=== PATIENT | female | born 1990 | race Caucasian/White ===

== ENCOUNTER 2016-05-01 11:25 | Inpatient (IN) | payer MEDICAID, OTHER ==
[~2016-05-01] VITALS: Ht 152.4 cm; Wt 77.7 kg
[2016-05-01 12:17] VITALS: Ht 152.4 cm; Wt 77.7 kg
[2016-05-01 12:19] VITALS: BP 114/71; PULSE 85; RESP 18
[2016-05-01] MEDS ORDERED: PRENAT PO (12:20)
[2016-05-01] MEDS ORDERED: MISOPROSTOL 200 MCG TAB PR PRN (12:30)
[2016-05-01] MEDS ORDERED: IBUPROFEN 600 MG TAB PO PRN (12:30)
[2016-05-01] MEDS ORDERED: LACTATED RINGER'S 1,000 ML IV PRN (12:30)
[2016-05-01] MEDS ORDERED: METHYLERGONOVINE 0.2 MG INJ IM PRN (12:30)
[2016-05-01] MEDS ORDERED: OXYTOCIN 30 UNITS/LR 500 ML IV SCH ×3 (12:30)
[2016-05-01] MEDS ORDERED: CARBOPROST 250 MCG INJ IM PRN (12:30)
[2016-05-01] MEDS ORDERED: LIDOCAINE 1% (MPF) 30 ML INJ INJ PRN (12:30)
[2016-05-01] MEDS ORDERED: OXYTOCIN 30 UNITS/LR 500 ML IV PRN (12:30)
[2016-05-01] MEDS ORDERED: BUTORPHANOL 2 MG INJ IV PRN (12:30)
[2016-05-01] MEDS ORDERED: ACETAMINOPHEN/CODEINE #3 TAB PO PRN (12:30)
--- NOTE | 2016-05-01 13:06 | RADRPT ---
PROCEDURE: US OB. CLINICAL INDICATION: Size and dates TECHNIQUE: Multiple sonographic images of the pelvis were obtained. Transabdominal imaging only w as performed. The images were reviewed on a PACS workstation. COMPARISON: No prior studies are available for comparison. FINDINGS: Single intrauterine gestation. Cephalic presentation. heart rate is 136 bpm. Accurate biparietal diameter and head circumference measurements could not be obtained secondary to positioning. AC = 32.26 cm FL = 7.17 cm Gestational age is 36 weeks 3 days and MICHEAL is 05/26/2016 by ultrasound criteria. Gestational age is 38 weeks 4 days and MICHEAL is 05/11/2016 by LMP. EFW = 2959 g +/- 473 g (18 %). The placenta is fundal. There is no evidence for an abruption or placenta previa. IMPRESSION: 1. Single live intrauterine gestation of approximately 36 weeks 3 days by ultrasound criteria. RPTAT: EE .Moshe Guerrero MD, MD Date Time Electronically viewed and signed by .Moshe Guerrero MD, on 05/01/2016 13:05 .R/
[2016-05-01 13:18] LABS: ADD SCAN DIFF NO
[2016-05-01 13:32] LABS: BASOPHILS % 0.4 % (0.0-2.0); EOSINOPHILS # 0.1 10^3/ul (0.0-0.5); EOSINOPHILS % 0.9 % (0.0-7.0); HEMATOCRIT 27.4 % (37.0-47.0); HEMOGLOBIN 11.2 g/dl (12.0-16.0); LYMPHOCYTES # 2.4 10^3/ul (0.8-2.9); LYMPHOCYTES % 23.5 % (15.0-51.0); MEAN CORPUSCULAR HEMOGLOBIN 39.9 pg (29.0-33.0); MEAN CORPUSCULAR VOLUME 97.5 fl (82.0-101.0); MEAN PLATELET VOLUME 11.4 fl (7.4-10.4); MONOCYTE # 0.9 10^3/ul (0.3-0.9); MONOCYTES % 8.6 % (0.0-11.0); NEUTROPHIL # 6.7 10^3/ul (1.6-7.5); NEUTROPHILS % 66.2 % (39.0-77.0); PLATELET COUNT 231 10^3/UL (140-415); RED BLOOD COUNT 2.81 10^6/ul (4.20-5.40); RED CELL DISTRIBUTION WIDTH 16.6 % (11.5-14.5); WHITE BLOOD COUNT 10.1 10^3/ul (4.8-10.8)
[2016-05-01 13:35] LABS: MEAN CORPUSCULAR HGB CONC 40.9 g/dl (32.0-37.0)
[2016-05-01 13:41] LABS: INR 0.88; PROTIME 11.9 Sec (12.2-14.2); PT RATIO 0.9
[2016-05-01 13:42] LABS: PARTIAL THROMBOPLASTIN TIME 28.1 Sec (25.0-35.0)
[2016-05-01] MEDS: LACTATED RINGER'S 1,000 ML IV SCH ×2 (13:44→19:28)
[2016-05-01] MEDS: BUTORPHANOL 2 MG INJ IV PRN ×2 (18:23→22:24)
[2016-05-02] MEDS ORDERED: LACTATED RINGER'S 1,000 ML IV ONE (01:23)
[2016-05-02] MEDS ORDERED: CITRIC ACID/NA CITRATE 30 ML CUP ONE (01:27)
[2016-05-02] MEDS ORDERED: ONDANSETRON 4 MG INJ ONE (01:28)
[2016-05-02] MEDS ORDERED: NALOXONE (0.4 MG/ML) INJ IV PRN (01:30)
[2016-05-02] MEDS ORDERED: ONDANSETRON 4 MG INJ IV PRN (01:30)
[2016-05-02] MEDS ORDERED: KETOROLAC 30 MG INJ IV PRN (01:30)
[2016-05-02] MEDS ORDERED: ONDANSETRON 4 MG INJ IV ONE (01:30)
[2016-05-02] MEDS ORDERED: PROCHLORPERAZINE 10 MG INJ IV PRN (01:30)
[2016-05-02] MEDS ORDERED: morphine 2 MG INJ IV PRN ×2 (01:30)
[2016-05-02] MEDS ORDERED: FENTAnyl 2MCG/ML-ROPIV 0.2% 100 ML BAG EPI SCH (01:30)
[2016-05-02] MEDS ORDERED: CITRIC ACID/NA CITRATE 30 ML CUP PO ONE (01:30)
[2016-05-02] MEDS ORDERED: DIPHENHYDRAMINE 50 MG INJ IV PRN (01:30)
[2016-05-02] MEDS ORDERED: FENTAnyl 2MCG/ML-ROPIV 0.2% 100 ML ONE (01:31)
[2016-05-02] MEDS: LACTATED RINGER'S 1,000 ML IV SCH (02:01)
--- NOTE | 2016-05-02 09:10 | HP ---
Date/Time of Note Date/Time of Note DATE: 05/02/16 TIME: 09:08 OB - History Hx of Present Free Text/Dictation @38+wks GA ,few admissions to [facility] for early labor and CTXs Progressed from FT to 4 cm Admitted for Delivery : 1 Para: 0 Care: Good Care Ultrasounds: Normal mid trimester US Obstetrical Complications: None Medical Complications: None Past Family/Social History * Past Medical, Surgical, Family and Obstetric Histories reviewed from chart. OB Admission Exam Vital Signs Vital Signs Vital Signs Date Time Temp Pulse Resp B/P Pulse Ox O2 Delivery O2 Flow Rate FiO2 05/01/16 12:19 98.6 85 18 114/71 Room Air Physical Exam Abdomen: WNL Extremities: Normal Reflexes: Normal Cervical Dilatation: 4cm Effacement: 75% Station: -1 Membranes: Intact Heart Rate: 140's Accelerations: Accelerations Present Decelerations: No Decelerations Varibility: Moderate Contractions on Admission: 6-10 Minutes Apart Last 72 hours Lab Results CBC & BMP 05/01/16 13:00 OB Assessment/Plan Reason for admission: observation Plan: Expectant Management Induction Method: per Pitocin Protocol LILIYA MEYERS M.D. May 02, 2016 09:10
--- NOTE | 2016-05-02 09:12 | LDN ---
Date/Time of Note Date/Time of Note DATE: 05/02/16 TIME: 09:10 Delivery Summary Midline Episiotomy Due to distress Placenta Delivered: Spontaneously Meconium: Light Perineum intact?: No Anesthesia type: Epidural Estimated blood loss: 200 Sponge & Needle done & correct: Yes All needle counts correct: Yes Any foreign bodies felt in the: No Problems: Delivery Information Apgars 1 Minute: 9 5 Minute: 9 Suctioning Nose & mouth suctioned at quan: Yes Delee suction performed: Yes Umbilical Cord Umbilical cord with: 3 Vessels Cord presentations: no nuchal cord Cord Blood was obtained: Yes LILIYA MEYERS M.D. May 02, 2016 09:11
[2016-05-02 10:50] VITALS: BP 117/73; PULSE 89; RESP 18
[2016-05-02] MEDS ORDERED: WITCH HAZEL/GLYCERIN PAD PR PRN (11:00)
[2016-05-02] MEDS ORDERED: ZOLPIDEM 5 MG TAB PO PRN (11:00)
[2016-05-02] MEDS ORDERED: SENNA/DOCUSATE NA (8.6MG/50MG) TAB PO PRN (11:00)
[2016-05-02] MEDS ORDERED: BENZOCAINE 20% 56 ML SPRAY TOP PRN (11:00)
[2016-05-02] MEDS ORDERED: LANOLIN 7 GM TUBE TOP PRN (11:00)
[2016-05-02] MEDS ORDERED: MISOPROSTOL 200 MCG TAB PR PRN (11:00)
[2016-05-02] MEDS ORDERED: OXYCODONE/ASPIRIN (4.88/325) TAB PO PRN (11:00)
[2016-05-02] MEDS ORDERED: METHYLERGONOVINE 0.2 MG INJ IM PRN (11:00)
[2016-05-02] MEDS ORDERED: CARBOPROST 250 MCG INJ IM PRN (11:00)
[2016-05-02] MEDS ORDERED: OXYTOCIN 30 UNITS/LR 500 ML IV PRN (11:00)
[2016-05-02 12:00] VITALS: BP 115/73; PULSE 80; RESP 18
[2016-05-02] MEDS: IBUPROFEN 600 MG TAB PO SCH ×3 (12:24→23:56)
[2016-05-02] MEDS: LACTATED RINGER'S 1,000 ML IV* SCH ×2 (12:26→14:43)
[2016-05-02 16:00] VITALS: BP 105/62; PULSE 85; RESP 16
[2016-05-02 20:20] VITALS: BP 103/62; PULSE 101; RESP 18
[2016-05-02] MEDS: SENNA/DOCUSATE NA (8.6MG/50MG) TAB PO SCH (21:31)
[2016-05-02] MEDS: MAGNESIUM HYDROXIDE 30ML CUP PO SCH (21:31)
[2016-05-03 00:05] VITALS: BP 98/65; PULSE 90; RESP 16
[2016-05-03] MEDS: LACTATED RINGER'S 1,000 ML IV* SCH (02:42)
[2016-05-03 04:20] VITALS: BP 102/52; PULSE 86; RESP 16
[2016-05-03] MEDS: IBUPROFEN 600 MG TAB PO SCH ×3 (05:45→18:00)
[2016-05-03 08:00] VITALS: BP 101/55; PULSE 94; RESP 18
[2016-05-03] MEDS: SENNA/DOCUSATE NA (8.6MG/50MG) TAB PO SCH ×2 (09:21→21:00)
[2016-05-03] MEDS: MAGNESIUM HYDROXIDE 30ML CUP PO SCH ×2 (09:21→21:00)
[2016-05-03 09:50] LABS: ADD SCAN DIFF NO
[2016-05-03 09:57] LABS: BASOPHILS % 0.2 % (0.0-2.0); EOSINOPHILS # 0.1 10^3/ul (0.0-0.5); EOSINOPHILS % 0.7 % (0.0-7.0); HEMOGLOBIN 9.3 g/dl (12.0-16.0); LYMPHOCYTES # 2.1 10^3/ul (0.8-2.9); LYMPHOCYTES % 16.1 % (15.0-51.0); MEAN CORPUSCULAR HGB CONC 35.8 g/dl (32.0-37.0); MEAN CORPUSCULAR VOLUME 97.7 fl (82.0-101.0); MEAN PLATELET VOLUME 11.2 fl (7.4-10.4); MONOCYTE # 0.8 10^3/ul (0.3-0.9); MONOCYTES % 6.4 % (0.0-11.0); NEUTROPHIL # 9.7 10^3/ul (1.6-7.5); PLATELET COUNT 188 10^3/UL (140-415); RED BLOOD COUNT 2.66 10^6/ul (4.20-5.40); RED CELL DISTRIBUTION WIDTH 16.2 % (11.5-14.5); WHITE BLOOD COUNT 12.8 10^3/ul (4.8-10.8)
--- NOTE | 2016-05-03 10:21 | DS ---
Date/Time of Note Date/Time of Note DATE: 05/03/16 TIME: 10:20 Discharge Summary Admission/Discharge Info Admit Date/Time May 01, 2016 at 12:00 Discharge Date/Time 05/04/16 Final Diagnosis Labor Patient Condition: Stable Procedures Vaginal delivery Hospital Course Uneventul Home Meds Reported Medications Multivit/Min/Fol Ac/Iron/Pren* ( S*) 1 Tab Tab, 1 TAB PO DAILY, TAB 05/01/16 Pending Labs Laboratory Tests Test 05/03/16 09:30 Basophils # 0.010^3/ul (0.0-0.1) Basophils % 0.2% (0.0-2.0) Eosinophils # 0.110^3/ul (0.0-0.5) Eosinophils % 0.7% (0.0-7.0) Hematocrit 26.0% (37.0-47.0) Hemoglobin 9.3g/dl (12.0-16.0) Lymphocytes # 2.110^3/ul (0.8-2.9) Lymphocytes % 16.1% (15.0-51.0) Mean Corpuscular Hemoglobin 35.0pg (29.0-33.0) Mean Corpuscular Hemoglobin Concent 35.8g/dl (32.0-37.0) Mean Corpuscular Volume 97.7fl (82.0-101.0) Mean Platelet Volume 11.2fl (7.4-10.4) Monocytes # 0.810^3/ul (0.3-0.9) Monocytes % 6.4% (0.0-11.0) Neutrophils # 9.710^3/ul (1.6-7.5) Neutrophils % 76.0% (39.0-77.0) Nucleated Red Blood Cells # 0.010^3/ul (0.0-0.0) Nucleated Red Blood Cells % 0.0/100WBC (0.0-0.0) Platelet Count 06865^3/UL (140-415) Red Blood Count 2.6610^6/ul (4.20-5.40) Red Cell Distribution Width 16.2% (11.5-14.5) White Blood Count 12.810^3/ul (4.8-10.8) LILIYA MEYERS M.D. May 03, 2016 10:21
--- NOTE | 2016-05-03 10:22 | QN ---
Documentation Comment PPD#1 IS stable no VB +BM +Voids No sign of depression VS stable Gen NAD Abd soft NT ND Genitalia No blood at perinium --->Discharge plan tomorrow LILIYA MEYERS M.D. May 03, 2016 10:22
[2016-05-03] MEDS ORDERED: INFLUENZA VIRUS VACCINE 0.5 ML SYG IM* ONE (12:00)
[2016-05-03 16:41] VITALS: BP 119/67; PULSE 91; RESP 19
[2016-05-03 19:30] VITALS: BP 106/63; PULSE 93; RESP 18
[2016-05-04 04:00] VITALS: BP 114/55; PULSE 88; RESP 18
[2016-05-04] MEDS: IBUPROFEN 600 MG TAB PO SCH ×3 (05:40→12:06)
[2016-05-04 08:30] VITALS: BP 114/56; PULSE 89; RESP 16
[2016-05-04] MEDS ORDERED: DIPHTH/TET/ACEL PERTUSS (ADULT) 0.5 ML VIAL IM* ONE (09:00)
[2016-05-04] MEDS: MAGNESIUM HYDROXIDE 30ML CUP PO SCH (09:00)
[2016-05-04] MEDS: SENNA/DOCUSATE NA (8.6MG/50MG) TAB PO SCH (09:00)
[2016-05-04 16:00] VITALS: BP 106/60; PULSE 66; RESP 18
== END 2016-05-04 16:25 | disposition home or self-care (01) | DRG 775 ==
LOC: OBT 11:25 → L-D 11:27 → OBT 12:00 → PP1 05-02 10:54
PROVIDERS: ADMIT Obstetrics & Gynecology; ATTEND Obstetrics & Gynecology
PROC: 10E0XZZ Delivery of Products of Conception, External Approach (ICD-10-PCS; principal; 2016-05-02)
PROC: 0W8NXZZ Division of Female Perineum, External Approach (ICD-10-PCS; 2016-05-02)
DX: O77.9 Labor and delivery complicated by fetal stress, unspecified (principal); Z37.0 Single live birth; Z3A.38 38 weeks gestation of pregnancy
CPT/HCPCS: 62319; 76815; 85025; 85610; 85730; 86592; 86900; 86901; 90686; 90715; G0463; J2405; J2590; J3010; J7120

== ENCOUNTER 2017-12-10 08:08 | Inpatient (IN) | END 2017-12-12 18:30 | disposition home or self-care (01) | DRG 807 ==